=== PATIENT | female | born 1990 | race Hispanic/Latino ===

== ENCOUNTER 2021-07-21 13:03 | Emergency (ER) | payer OTHER ==
[~2021-07-21] VITALS: Ht 157.5 cm; Wt 90.0 kg
[2021-07-21] MEDS ORDERED: AMLO25TA PO (13:22)
[2021-07-21] MEDS ORDERED: FAMOTIDINE INJ 20MG/2ML VIAL (S0028 PER 1) IVP ONE (13:45)
[2021-07-21] MEDS ORDERED: methylPREDNISolone 125MG 2ML VIAL IV ONE (13:45)
[2021-07-21] MEDS ORDERED: NS 1,000 ML IV ONE (13:45)
[2021-07-21] MEDS ORDERED: PRED20TA PO (17:21)
[2021-07-21] MEDS ORDERED: PEPC1TAB5 PO (17:21)
[2021-07-21 17:28] VITALS: BP 129/87
== END 2021-07-21 17:32 | disposition home or self-care (01) ==
LOC: EDBD 13:03 → M ED 13:03
DX: R21 Rash and other nonspecific skin eruption (principal); L29.9 Pruritus, unspecified; T39.315A Adverse effect of propionic acid derivatives, initial encounter; I10 Essential (primary) hypertension; J45.909 Unspecified asthma, uncomplicated; Z88.6 Allergy status to analgesic agent; Z91.89 Other specified personal risk factors, not elsewhere classified
CPT/HCPCS: 93041; 94760; 96361; 96374; 96375; 99285; J2930

== ENCOUNTER 2021-09-08 18:08 | Emergency (ER) | payer OTHER ==
[~2021-09-08] VITALS: Ht 157.5 cm; Wt 87.6 kg
[~2021-09-08 18:08] MED LIST: AMLO25TA PO; PEPC1TAB5 PO; PRED20TA PO
[2021-09-08] MEDS ORDERED: predniSONE 20 MG TAB PO ONE (18:45)
[2021-09-08 19:40] VITALS: O2SAT 97
[2021-09-08] MEDS ORDERED: OSELTAMIVIR PHOSPHATE 75 MG CAP (TAMIFLU) PO ONE (20:00)
[2021-09-08] MEDS ORDERED: OSEL75CA PO (20:09)
[2021-09-08] MEDS ORDERED: PRED10TA2 PO (20:09)
[2021-09-08 20:42] VITALS: BP 160/91
== END 2021-09-08 20:43 | disposition home or self-care (01) ==
LOC: M ED 18:08
DX: U07.1 COVID-19 (principal); J10.89 Influenza due to other identified influenza virus with other manifestations; Z20.822 Contact with and (suspected) exposure to COVID-19; I10 Essential (primary) hypertension; J45.909 Unspecified asthma, uncomplicated; Z79.899 Other long term (current) drug therapy; Z88.8 Allergy status to other drugs, medicaments and biological substances; Z88.6 Allergy status to analgesic agent; Z91.89 Other specified personal risk factors, not elsewhere classified
CPT/HCPCS: 99284; J7512